=== PATIENT | female | born 1945 | race Caucasian/White ===

== ENCOUNTER 2021-07-31 18:02 | Emergency (ER) | payer BC ==
[~2021-07-31] VITALS: Ht 152.4 cm; Wt 72.6 kg
[2021-07-31 18:45] VITALS: BP_SYST 151
[2021-07-31] MEDS ORDERED: TRAM50TA2 PO (21:06)
[2021-07-31] MEDS ORDERED: CEPH-548 PO (21:08)
== END 2021-07-31 22:35 | disposition home or self-care (01) ==
LOC: SED 18:02
DX: L60.0 Ingrowing nail (principal); Z79.899 Other long term (current) drug therapy
CPT/HCPCS: 99283